=== PATIENT | female | born 1990 | race American Indian/Alaskan Native ===

== ENCOUNTER 2018-12-02 23:40 | Emergency (ER) | payer BC ==
[2018-12-03 01:06] VITALS: BP 160/100
[2018-12-03 04:07] LABS: HCG Qualitative,Urine Negative (Negative)
[2018-12-03 04:08] LABS: Bacteria,Urine 1+ /HPF (Negative); Bilirubin,Urine NEG (Negative); Blood,Urine LG (Negative); Color,Urine Yellow (Yellow); Protein,Urine <15 mg/dL mg/dL (Negative); Urobilinogen,Urine < 2.0 mg/dL (<2.0)
[2018-12-03] MEDS ORDERED: FIORICET PO ONE (05:56)
[2018-12-03] MEDS ORDERED: ZOFRAN ODT PO ONE (05:56)
[2018-12-03] MEDS ORDERED: KEFLEX PO ONE (05:56)
[2018-12-03] MEDS ORDERED: IBUPROFEN PO ONE (05:56)
--- NOTE | 2018-12-03 07:04 | Emergency Department Report ---
ED General Adult HPI - General Chief complaint: Headache Stated complaint: SPOTTING AFTER CYCLE, HEADACHES Source: patient Mode of arrival: Ambulatory Limitations: No Limitations - History of Present Illness Initial comments: Patient is a nulliparous 28-year-old -[place] female with no past medical history presents to the ED with persistent heavy vaginal bleeding during her menstrual cycle and persistent vaginal spotting in between the cycles for the last 2 months. Patient also complains of persistent headache for the last 1 week. Patient denies vaginal discharge, fever, chills, nausea, vomiting, abdominal pain, chest pain, fever, chills, diarrhea, syncope, sore throat or dyspareunia. MD Complaint: headache, heavy vaginal bleeding -: Sudden, month(s) (2) Location: head, genitals Radiation: non-radiation Severity scale (0 -10): 4 Quality: aching, sharp Consistency: intermittent Improves with: none Worsens with: none Associated Symptoms: headaches. denies: denies other symptoms, confusion, cough, diaphoresis, fever/chills, loss of appetite, nausea/vomiting, shortness of breath, syncope, other Treatments Prior to Arrival: none - Related Data Previous Rx's Medication Instructions Recorded Last Taken Type Butalb/Acetamin/Caff 50-325-40 1 tab PO Q6HR PRN #12 tab 12/03/18 Unknown Rx [Fioricet 50-325-40] Ketorolac [Toradol] 10 mg PO Q8H PRN #20 tablet 12/03/18 Unknown Rx cephALEXin [Keflex] 500 mg PO Q8HR #30 capsule 12/03/18 Unknown Rx medroxyPROGESTERone ACETATE 10 mg PO DAILY #10 tablet 12/03/18 Unknown Rx [Medroxyprogesterone Acetate] Allergies Allergy/AdvReac Type Severity Reaction Status Date / Time No Known Allergies Allergy Verified 12/02/18 23:43 ED Review of Systems ROS: Stated complaint: SPOTTING AFTER CYCLE, HEADACHES Other details as noted in HPI Constitutional: denies: chills, fever Eyes: denies: eye pain, eye discharge, vision change ENT: denies: ear pain, throat pain Respiratory: denies: cough, shortness of breath, wheezing Cardiovascular: denies: chest pain, palpitations Endocrine: no symptoms reported Gastrointestinal: denies: abdominal pain, nausea, vomiting, diarrhea, constipation, hematemesis Genitourinary: hematuria, abnormal menses. denies: urgency, dysuria, discharge Musculoskeletal: denies: back pain, joint swelling, arthralgia Skin: denies: rash, lesions Neurological: headache. denies: weakness, paresthesias Psychiatric: denies: anxiety, depression Hematological/Lymphatic: denies: easy bleeding, easy bruising ED Past Medical Hx - Social History Smoking Status: Current Every Day Smoker - Medications Home Medications: Home Medications Medication Instructions Recorded Confirmed Last Taken Type Butalb/Acetamin/Caff 50-325-40 1 tab PO Q6HR PRN #12 tab 12/03/18 Unknown Rx [Fioricet 50-325-40] Ketorolac [Toradol] 10 mg PO Q8H PRN #20 tablet 12/03/18 Unknown Rx cephALEXin [Keflex] 500 mg PO Q8HR #30 capsule 12/03/18 Unknown Rx medroxyPROGESTERone ACETATE 10 mg PO DAILY #10 tablet 12/03/18 Unknown Rx [Medroxyprogesterone Acetate] ED Physical Exam - General Limitations: No Limitations ED Course Vital Signs 12/03/18 01:03 Temperature 99.1 F Pulse Rate 91 H Respiratory 18 Rate Blood Pressure 160/100 O2 Sat by Pulse 100 Oximetry Critical care attestation.: If time is entered above; I have spent that time in minutes in the direct care of this critically ill patient, excluding procedure time. ED Disposition Clinical Impression: Dysfunctional uterine hemorrhage, Acute urinary tract infection Tension-type headache Qualifiers: Headache chronicity pattern: acute headache Intractability: not intractable Qualified Code(s): G44.209 - Tension-type headache, unspecified, not intractable Disposition: DC-01 TO HOME OR SELFCARE Is pt being admited?: No Does the pt Need Aspirin: No Condition: Stable Instructions: Urinary Tract Infection in Women (ED), Tension Headache (ED) Additional Instructions: Take medications with food, drink plenty of fluids and follow-up with your primary care physician in 5-7 days for reevaluation. Return to the ED immed iately if symptoms get worse. Prescriptions: Butalb/Acetamin/Caff 50-325-40 [Fioricet 50-325-40] 1 tab PO Q6HR PRN #12 tab PRN Reason: Headache cephALEXin [Keflex] 500 mg PO Q8HR #30 capsule medroxyPROGESTERone ACETATE [Medroxyprogesterone Acetate] 10 mg PO DAILY #10 tablet Ketorolac [Toradol] 10 mg PO Q8H PRN #20 tablet PRN Reason: Pain Referrals: PRIMARY CARE,MD [Primary Care Provider] - 3-5 Days Forms: Work/School Release Form(ED) Time of Disposition: 07:02 Print Language: ARABIC
== END 2018-12-03 07:31 | disposition home or self-care (01) ==
LOC: ED 23:40
DX: N93.8 Other specified abnormal uterine and vaginal bleeding (principal); N39.0 Urinary tract infection, site not specified; G44.209 Tension-type headache, unspecified, not intractable; F17.200 Nicotine dependence, unspecified, uncomplicated; Z79.899 Other long term (current) drug therapy
CPT/HCPCS: 81001; 81025; 87086; 99283; Q0162

== ENCOUNTER 2019-02-17 02:15 | Emergency (ER) | payer BC ==
[2019-02-17 02:32] VITALS: BP 115/73
[2019-02-17] MEDS ORDERED: IBUPROFEN 600 MG TAB PO ONE (02:42)
[2019-02-17] MEDS ORDERED: dexAMETHasone 4 MG/ML VIAL IM ONE (02:42)
--- NOTE | 2019-02-17 02:47 | Emergency Department Report ---
ED ENT HPI - General Chief complaint: Sore Throat Stated complaint: SORE THROAT HEADACHE LT AND RT EAR PAIN Time Seen by Provider: 02/17/19 02:35 Source: patient Mode of arrival: Ambulatory Limitations: No Limitations - History of Present Illness Initial comments: Patient is a 28-year-old female presents emergency room with complaints of a sore throat that began 2 days ago. She states she has associated pain with swallowing. Patient is also complaining of ear pain and headache. She denies any fever, vomiting. She denies any sick contacts. She denies any past medical history or allergies medications. States her last menstrual cycle was January 24. - Related Data Previous Rx's Medication Instructions Recorded Last Taken Type Butalb/Acetamin/Caff 50-325-40 1 tab PO Q6HR PRN #12 tab 12/03/18 Unknown Rx [Fioricet 50-325-40] Ketorolac [Toradol] 10 mg PO Q8H PRN #20 tablet 12/03/18 Unknown Rx cephALEXin [Keflex] 500 mg PO Q8HR #30 capsule 12/03/18 Unknown Rx medroxyPROGESTERone ACETATE 10 mg PO DAILY #10 tablet 12/03/18 Unknown Rx [Medroxyprogesterone Acetate] Amoxicillin [Trimox CAP] 500 mg PO BID 10 Days #20 capsule 02/17/19 Unknown Rx Nystas/Diphen/Xyl Visc/Mylanta 30 ml MM TID PRN #450 ml 02/17/19 Unknown Rx [Magic Mouthwash] Allergies Allergy/AdvReac Type Severity Reaction Status Date / Time No Known Allergies Allergy Verified 12/02/18 23:43 ED Dental HPI - General Chief complaint: Sore Throat Stated complaint: SORE THROAT HEADACHE LT AND RT EAR PAIN Time Seen by Provider: 02/17/19 02:35 Source: patient Mode of arrival: Ambulatory Limitations: No Limitations - Related Data Previous Rx's Medication Instructions Recorded Last Taken Type Butalb/Acetamin/Caff 50-325-40 1 tab PO Q6HR PRN #12 tab 12/03/18 Unknown Rx [Fioricet 50-325-40] Ketorolac [Toradol] 10 mg PO Q8H PRN #20 tablet 12/03/18 Unknown Rx cephALEXin [Keflex] 500 mg PO Q8HR #30 capsule 12/03/18 Unknown Rx medroxyPROGESTERone ACETATE 10 mg PO DAILY #10 tablet 12/03/18 Unknown Rx [Medroxyprogesterone Acetate] Amoxicillin [Trimox CAP] 500 mg PO BID 10 Days #20 capsule 02/17/19 Unknown Rx Nystas/Diphen/Xyl Visc/Mylanta 30 ml MM TID PRN #450 ml 02/17/19 Unknown Rx [Magic Mouthwash] Allergies Allergy/AdvReac Type Severity Reaction Status Date / Time No Known Allergies Allergy Verified 12/02/18 23:43 ED Review of Systems ROS: Stated complaint: SORE THROAT HEADACHE LT AND RT EAR PAIN Other details as noted in HPI Comment: All other systems reviewed and negative ED Past Medical Hx - Past Medical History Previous Medical History?: No - Surgical History Past Surgical History?: No - Social History Smoking Status: Never Smoker Substance Use Type: None - Medications Home Medications: Home Medications Medication Instructions Recorded Confirmed Last Taken Type Butalb/Acetamin/Caff 50-325-40 1 tab PO Q6HR PRN #12 tab 12/03/18 Unknown Rx [Fioricet 50-325-40] Ketorolac [Toradol] 10 mg PO Q8H PRN #20 tablet 12/03/18 Unknown Rx cephALEXin [Keflex] 500 mg PO Q8HR #30 capsule 12/03/18 Unknown Rx medroxyPROGESTERone ACETATE 10 mg PO DAILY #10 tablet 12/03/18 Unknown Rx [Medroxyprogesterone Acetate] Amoxicillin [Trimox CAP] 500 mg PO BID 10 Days #20 capsule 02/17/19 Unknown Rx Nystas/Diphen/Xyl Visc/Mylanta 30 ml MM TID PRN #450 ml 02/17/19 Unknown Rx [Magic Mouthwash] ED Physical Exam - General Limitations: No Limitations General appearance: alert, in no apparent distress - Head Head exam: Present: atraumatic, normocephalic - Eye Eye exam: Present: normal appearance - ENT ENT exam: Present: mucous membranes moist, TM's normal bilaterally, normal external ear exam, other (tonsillar hypertrophy with erythema of the tonsils bilaterally, no obvious exudates visualized, uvula is midline, no uvular edema) - Respiratory Respiratory exam: Present: normal lung sounds bilaterally. Absent: respiratory distress, wheezes, rales, rhonchi, stridor, chest wall tenderness, accessory muscle use, decreased breath sounds, prolonged expiratory - Cardiovascular Cardiovascular Exam: Present: regular rate, normal rhythm, normal heart sounds. Absent: systolic murmur, diastolic murmur, rubs, gallop - Neurological Exam Neurological exam: Present: alert, oriented X3 - Psychiatric Psychiatric exam: Present: normal affect, normal mood - Skin Skin exam: Present: warm, dry, intact ED Course Vital Signs 02/17/19 02/17/19 02/17/19 02:21 02:32 03:15 Temperature 98.9 F 98.9 F Pulse Rate 118 H 110 H 94 H Respiratory 18 18 17 Rate Blood Pressure 115/73 Blood Pressure 115/73 [Left] O2 Sat by Pulse 100 97 97 Oximetry ED Medical Decision Making - Medical Decision Making Patient is a 28-year-old female presents emergency room with complaints of a sore throat that began 2 days ago. She states she has associated pain with swallowing. Patient is also complaining of ear pain and headache. She denies any fever, vomiting. She denies any sick contacts. She denies any past medical history or allergies medications. States her last menstrual cycle was January 24. Initial vitals with tachycardia which improved upon repeat. on exam: tonsillar hypertrophy with erythema of the tonsils bilaterally, no obvious exudates visualized, uvula is midline, no uvular edema, breath sounds are clear bilaterally without wheezes, rales, rhonchi. Examination consistent with tonsillitis. Patient given ibuprofen and Decadron injection and symptoms improved. Patient given prescription for amoxicillin and Magic mouthwash. Advised patient Please take medication as prescribed. Please increase your fluid intake over the next several days. May take Tylenol or ibuprofen for any discomfort. May use warm saltwater gargles, throat lozenges, drink warm tea. Follow-up with a primary care doctor in the next 3 days for reexamination. Return to the emergency room for any new or worsening symptoms. - Differential Diagnosis tonsillitis, pharyngitis, viral syndrome, URI, otitis media, otitis externa Critical care attestation.: If time is entered above; I have spent that time in minutes in the direct care of this critically ill patient, excluding procedure time. ED Disposition Clinical Impression: Tonsillitis Disposition: - TO HOME OR SELFCARE Is pt being admited?: No Does the pt Need Aspirin: No Condition: Stable Instructions: Tonsillitis (ED) Additional Instructions: Please take medication as prescribed. Please increase your fluid intake over the next several days. May take Tylenol or ibuprofen for any discomfort. May use warm saltwater gargles, throat lozenges, drink warm tea. Follow-up with a primary care doctor in the next 3 days for reexamination. Return to the emergency room for any new or worsening symptoms. Prescriptions: Nystas/Diphen/Xyl Visc/Mylanta [Magic Mouthwash] 30 ml MM TID PRN #450 ml PRN Reason: sore throat Amoxicillin [Trimox CAP] 500 mg PO BID 10 Days #20 capsule Referrals: [facility] [Provider Group] - 2-3 Days Forms: Work/School Release Form(ED) Time of Disposition: 02:45 Print Language: LIBERIAN
== END 2019-02-17 03:15 | disposition home or self-care (01) ==
LOC: ED 02:15
DX: J03.90 Acute tonsillitis, unspecified (principal); Z79.899 Other long term (current) drug therapy
CPT/HCPCS: 96372; 99282; J1100